=== PATIENT | female | born 1950 | race Two or more races ===

== ENCOUNTER 2020-11-16 15:16 | Emergency (ER) | payer MEDICARE, MEDICAID ==
[~2020-11-16] VITALS: Ht 162.6 cm; Wt 55.0 kg
[2020-11-16] MEDS ORDERED: IBUPROFEN 800MG TABLET PO ONE (16:30)
[2020-11-16] MEDS ORDERED: ACETAMINOPHEN 500MG TABLET PO ONE (16:30)
[2020-11-16] MEDS ORDERED: NAPR-681 MT (19:23)
[2020-11-16 19:30] VITALS: BP 120/72
== END 2020-11-16 19:52 | disposition home or self-care (01) ==
LOC: ER 15:16
DX: S29.012A Strain of muscle and tendon of back wall of thorax, initial encounter (principal); S70.02XA Contusion of left hip, initial encounter; S80.02XA Contusion of left knee, initial encounter; S43.402A Unspecified sprain of left shoulder joint, initial encounter; M62.830 Muscle spasm of back; E11.9 Type 2 diabetes mellitus without complications; I10 Essential (primary) hypertension; Z96.652 Presence of left artificial knee joint; Z88.8 Allergy status to other drugs, medicaments and biological substances; Z79.899 Other long term (current) drug therapy; W18.39XA Other fall on same level, initial encounter; Y93.89 Activity, other specified; Y92.89 Other specified places as the place of occurrence of the external cause; Y99.8 Other external cause status
CPT/HCPCS: 72100; 73030; 73502; 73562; 99284